=== PATIENT | female | born 1980 | race African-American/Black ===

== ENCOUNTER 2017-01-07 13:21 | Emergency (ER) | payer OTHER ==
[~2017-01-07] VITALS: Ht 157.5 cm; Wt 102.5 kg
[~2017-01-07 13:21] MED LIST: FLEXERIL; METO-239 PO
--- NOTE | 2017-01-07 13:56 | RAD ---
CHEST AP ONLY Clinical Indication: chest pain Comparison: Chest radiograph dated 04/23/2007 Findings: Normal lung volume. No focal consolidation. Normal pulmonary vasculature. No pleural effusion or pneumothorax. The cardiomediastinal silhouette and great vessels are normal. No acute osseous abnormality. IMPRESSION: No acute cardiopulmonary process.
[2017-01-07] MEDS ORDERED: ASPIRIN 81 MG TAB.CHEW PO ONE (14:00)
[2017-01-07 14:01] LABS: BASO # 0.1 x10^3/uL (0.0-0.2); BASO % 1 % (0-3); EOS % 0 % (0-3); HEMATOCRIT 37.6 % (36.0-47.0); HEMOGLOBIN 12.8 g/dL (12.0-15.5); LYMPH # 2.2 x10^3/uL (1.0-4.8); LYMPH % 22 % (24-48); MEAN CORPUSCULAR HEMOGLOBIN 30 pg (25-35); MEAN CORPUSCULAR HGB CONC 34 g/dL (31-37); MEAN CORPUSCULAR VOLUME 88 fL (79-100); MONO # 0.4 x10^3/uL (0.0-1.1); MONO % 4 % (0-9); NEUT # 7.4 x10^3uL (1.8-7.7); NEUT % 73 % (31-73); PLATELET COUNT 264 x10^3/uL (140-400); RED BLOOD COUNT 4.26 x10^6/uL (3.50-5.40); RED CELL DISTRIBUTION WIDTH 13.3 % (11.5-14.5); WHITE BLOOD COUNT 10.1 x10^3/uL (4.0-11.0)
[2017-01-07 14:16] LABS: CALCIUM 9.1 mg/dL (8.5-10.1); CREATININE 0.9 mg/dL (0.6-1.0); DIRECT BILIRUBIN 0.1 mg/dL (0.0-0.2); GFR 86.7; POTASSIUM 3.7 mmol/L (3.5-5.1); TOTAL BILIRUBIN 0.4 mg/dL (0.2-1.0); TOTAL PROTEIN 8.2 g/dL (6.4-8.2)
--- NOTE | 2017-01-07 14:27 | PHYS DOC ---
Past History Past Medical History: Other Past Surgical History: Other Alcohol Use: None Drug Use: None Adult General Chief Complaint Chief Complaint: CHEST PAIN HPI HPI 36-year-old female presenting to the emergency department today with chest pain. She describes as a sharp shooting pain that is intermittent nonradiating and without alleviating factors. It is moderate in severity. She denies unilateral leg swelling hemoptysis personal history of DVTs. She denies recent immobilization. She denies having diabetes high blood pressure high cholesterol. She reports a history of smoking. Her pain is been present for more than 4 days. Review of systems is negative for abdominal pain shortness of breath fevers chills nausea or vomiting. She denies diaphoresis. All other review of systems is negative unless otherwise noted in history of present illness. ED course: 36-year-old female presenting to the emergency department today with chest pain. PERC neg. triage vital signs show the patient to have a normal heart rate. Saturations within normal limits. Lungs are clear to auscultation abdomen is soft and nontender. EKG reviewed by myself today shows sinus rhythm with a regular rate. ST segments are congruent. Not suggestive of ACS. Chest x- ray ordered which was unremarkable. Chest x-ray reviewed by myself shows no obvious abnormalities. Blood work obtained which was unremarkable. The patient was subsequently discharged home. The patient was then discharged home in stable condition to follow up with their primary care physician over the next 2- 3 days. They were to return if their symptoms worsened or if they were concerned for any reason. [id number]-[id number] discharge instructions and return precautions were given. Patient's questions were answered to their satisfaction. Patient is comfortable plan. Review of Systems Review of Systems SEE ABOVE Current Medications Current Medications Current Medications Medications (Trade) Dose Ordered Sig/[facility] Start Time Stop Time Status Last Admin Dose Admin Aspirin (Children'S Aspirin) 324 mg 1X ONCE 01/07/17 14:00 01/07/17 14:01 DC 01/07/17 13:44 324 MG Allergies Allergies Allergies Coded Allergies Type Severity Reaction Last Updated Verified No Known Drug Allergies 01/07/17 No Physical Exam Physical Exam Constitutional: Well developed, well nourished, no acute distress, non-toxic appearance. [] HENT: Normocephalic, atraumatic, bilateral external ears normal, oropharynx moist, no oral exudates, nose normal. [] Eyes: PERRLA, EOMI, conjunctiva normal, no discharge. [] Neck: Normal range of motion, no tenderness, supple, no stridor. [] Cardiovascular:Heart rate regular rhythm, no murmur [] Lungs & Thorax: Bilateral breath sounds clear to auscultation [] Abdomen: Bowel sounds normal, soft, no tenderness, no masses, no pulsatile masses. [] Skin: Warm, dry, no erythema, no rash. [] Back: No tenderness, no CVA tenderness. [] Extremities: No tenderness, no cyanosis, no clubbing, ROM intact, no edema. [] Neurologic: Mental status: Awake oriented and alert x3 Cranial nerves: Extraocular movements intact, eyebrows baldomero bilaterally smile symmetric, uvula elevation, shoulder shrug intact, tongue protrusion normal DTRs: 2+ Sensation: equal and normal in all extremities Strength: 5/5 in upper and lower extremities bilaterally Psychologic: Affect normal, judgement normal, mood normal. [] Current Patient Data Vital Signs Vital Signs Date Time Temp Pulse Resp B/P (MAP) Pulse Ox O2 Delivery O2 Flow Rate FiO2 01/07/17 13:37 98.4 87 16 100 Room Air Lab Results Laboratory Tests Test 01/07/17 13:47 White Blood Count 10.1 x10^3/uL (4.0-11.0) Red Blood Count 4.26 x10^6/uL (3.50-5.40) Hemoglobin 12.8 g/dL (12.0-15.5) Hematocrit 37.6 % (36.0-47.0) Mean Corpuscular Volume 88 fL (79-100) Mean Corpuscular Hemoglobin 30 pg (25-35) Mean Corpuscular Hemoglobin Concent 34 g/dL (31-37) Red Cell Distribution Width 13.3 % (11.5-14.5) Platelet Count 264 x10^3/uL (140-400) Neutrophils (%) (Auto) 73 % (31-73) Lymphocytes (%) (Auto) 22 % (24-48) L Monocytes (%) (Auto) 4 % (0-9) Eosinophils (%) (Auto) 0 % (0-3) Basophils (%) (Auto) 1 % (0-3) Neutrophils # (Auto) 7.4 x10^3uL (1.8-7.7) Lymphocytes # (Auto) 2.2 x10^3/uL (1.0-4.8) Monocytes # (Auto) 0.4 x10^3/uL (0.0-1.1) Eosinophils # (Auto) 0.0 x10^3/uL (0.0-0.7) Basophils # (Auto) 0.1 x10^3/uL (0.0-0.2) Sodium Level 139 mmol/L (136-145) Potassium Level 3.7 mmol/L (3.5-5.1) Chloride Level 104 mmol/L (98-107) Carbon Dioxide Level 28 mmol/L (21-32) Anion Gap 7 (6-14) Blood Urea Nitrogen 7 mg/dL (7-20) Creatinine 0.9 mg/dL (0.6-1.0) Estimated GFR (Cockcroft-Gault) 86.7 Glucose Level 98 mg/dL (70-99) Calcium Level 9.1 mg/dL (8.5-10.1) Total Bilirubin 0.4 mg/dL (0.2-1.0) Direct Bilirubin 0.1 mg/dL (0.0-0.2) Aspartate Amino Transferase (AST) 16 U/L (15-37) Alanine Aminotransferase (ALT) 16 U/L (14-59) Alkaline Phosphatase 63 U/L (46-116) Troponin I Quantitative < 0.017 ng/mL (0-0.055) Total Protein 8.2 g/dL (6.4-8.2) Albumin 4.0 g/dL (3.4-5.0) Lipase 90 U/L (73-393) EKG EKG [] Radiology/Procedures Radiology/Procedures [] Course & Med Decision Making Course & Med Decision Making Pertinent Labs and Imaging studies reviewed. (See chart for details) [] Dragon Disclaimer Dragon Disclaimer This chart was dictated in whole or in part using Voice Recognition software in a busy, high-work load, and often noisy Emergency Department environment. It may contain unintended and wholly unrecognized errors or omissions. Departure Departure: Impression: Primary Impression: Chest pain Additional Impression: Headache Disposition: 01 HOME, SELF-CARE Condition: STABLE Referrals: ELLE ROSADO PA-C (PCP) Patient Instructions: Chest Pain (Nonspecific), General Headache Without Cause Additional Instructions: Thank you for allowing us to participate in your care today. Followup with your primary care physician in 3 days if your symptoms do not improve. Call your Primary Doctor tomorrow and inform them of your visit today. If you do not have a primary care provider you can ask for a list of our primary care providers. Return to the emergency department you have any new or concerning findings. This should be evaluated by the primary care physician and any necessary consulting services for continued management within a few days after discharge. Return to emergency room if you have any new or concerning symptoms including but not limited to fever, chills, nausea, vomiting, intractable pain, any new rashes, chest pain, shortness of air, uncontrolled bleeding, difficulty breathing, and/or vision loss. Problem Qualifiers LORNA CAMILO MD Jan 07, 2017 14:27
--- NOTE | 2017-01-07 14:36 | EKG ---
[address] [address] Test Date: 2017-01-07 Test Time: 13:28:45 Pat Name: SERGIO DIXON Department: Room: Gender: F Rn Radiology: LIGIA : 1980 Requested By: LORNA CAMILO Order Number: [id number] Reading MD: Measurements Intervals [place] Rate: 90 P: 59 ID: [id number] QRS: 26 QRSD: 84 T: 39 QT: 304 QTc: 375 Interpretive Statements SINUS RHYTHM QRS(T) CONTOUR ABNORMALITY CONSIDER ANTEROSEPTAL MYOCARDIAL DAMAGE POSSIBLY ABNORMAL ECG RI6.01 No previous ECG available for comparison
[2017-01-07 14:40] VITALS: BP 140/88
== END 2017-01-07 14:47 | disposition home or self-care (01) ==
LOC: ER 13:21
DX: R07.9 Chest pain, unspecified (principal); R51 Headache
CPT/HCPCS: 36415; 71010; 80048; 80076; 83690; 84443; 84484; 85025; 93005; 99285-25

== ENCOUNTER 2021-07-31 21:35 | Emergency (ER) | payer MEDICAID, OTHER ==
[~2021-07-31] VITALS: Ht 161.3 cm; Wt 100.0 kg
[2021-07-31] MEDS ORDERED: ONDANSETRON PF 4 MG/2 ML VIAL. IVP ONE ×2 (22:00→23:00)
[2021-07-31] MEDS ORDERED: IV NORMAL SALINE 1,000ML 1,000 ML IV ONE (22:00)
[2021-07-31 22:26] LABS: BASO # 0.1 x10^3/uL (0.0-0.2); BASO % 1 % (0-3); EOS # 0.2 x10^3/uL (0.0-0.7); EOS % 2 % (0-3); HEMATOCRIT 37.8 % (36.0-47.0); HEMOGLOBIN 12.6 g/dL (12.0-15.5); LYMPH # 2.7 x10^3/uL (1.0-4.8); LYMPH % 26 % (24-48); MEAN CORPUSCULAR HEMOGLOBIN 31 pg (25-35); MEAN CORPUSCULAR HGB CONC 33 g/dL (31-37); MEAN CORPUSCULAR VOLUME 92 fL (79-100); MONO # 0.4 x10^3/uL (0.0-1.1); MONO % 4 % (0-9); NEUT # 7.1 x10^3uL (1.8-7.7); NEUT % 68 % (31-73); PLATELET COUNT 259 x10^3/uL (140-400); RED BLOOD COUNT 4.11 x10^6/uL (3.50-5.40); RED CELL DISTRIBUTION WIDTH 14.5 % (11.5-14.5); WHITE BLOOD COUNT 10.5 x10^3/uL (4.0-11.0)
--- NOTE | 2021-07-31 22:29 | PHYS DOC ---
Past History Past Medical History: Other Additional Past Medical Histor: GRAVES DISEASE Past Surgical History: Other Additional Past Surgical Histo: THYROIDECTOMY Alcohol Use: Occasionally Drug Use: None General Adult EDM: Chief Complaint: NAUSEA/VOMITING/DIARRHEA HPI: HPI: Patient is a 41-year-old female coming in for nausea, vomiting, and abdominal pain. Patient states she is been having symptoms for 2 days and has not been able to hold anything down. Patient states that she has a sister had similar symptoms a couple days before. Patient tried to drink Gatorade. Review of Systems: Review of Systems: All other systems within normal limits except for as noted in the HPI Current Medications: Current Meds: Current Medications Medications (Trade) Dose Ordered Sig/Aro[facility]o Start Time Stop Time Status Last Admin Dose Admin Ondansetron HCl (Zofran) 4 mg 1X ONCE 07/31/21 22:00 07/31/21 22:01 DC Sodium Chloride 1,000 ml @ 1,000 mls/hr 1X ONCE 07/31/21 22:00 07/31/21 22:59 Allergies: Allergies: Allergies Coded Allergies Type Severity Reaction Last Updated Verified No Known Drug Allergies 07/31/21 No Physical Exam: PE: Constitutional: Well developed, well nourished, no acute distress, non-toxic appearance. [] HENT: Normocephalic, atraumatic, bilateral external ears normal, nose normal. [] Eyes: PERRLA, conjunctiva normal, no discharge. [] Neck: No rigidity, supple, no stridor. [] Cardiovascular: Regular rate and rhythm, brisk cap refill [] Lungs & Thorax: Non labored symmetric respirations, no tachypnea or respiratory distress [] Abdomen: Soft, nondistended. Skin: Warm, dry, no erythema, no rash. [] Back: Unremarkable Extremities: No deformities, range of motion grossly intact, no lower extremity edema [] Neurologic: Alert and oriented X 3, no focal deficits noted. [] Psychologic: Affect normal, judgement normal, mood normal. [] Current Patient Data: Vital Signs: Vital Signs Date Time Temp Pulse Resp B/P (MAP) Pulse Ox O2 Delivery O2 Flow Rate FiO2 07/31/21 21:55 98.7 103 18 156/88 (110) 97 EKG: EKG: [] Radiology/Procedures: Radiology/Procedures: [] Heart Score: C/O Chest Pain: No Risk Factors: Risk Factors: DM, Current or recent (<one month) smoker, HTN, HLP, family history of CAD, obesity. Risk Scores: Score 0 - 3: 2.5% MACE over next 6 weeks - Discharge Home Score 4 - 6: 20.3% MACE over next 6 weeks - Admit for Clinical Observation Score 7 - 10: 72.7% MACE over next 6 weeks - Early Invasive Strategies Dragon Disclaimer: Dragon Disclaimer: This electronic medical record was generated, in whole or in part, using a voice recognition dictation system. Departure Departure: Impression: Primary Impression: Nausea, vomiting, and diarrhea Additional Impressions: Infection due to trichomonas UTI (urinary tract infection) Disposition: HOME / SELF CARE / HOMELESS Condition: STABLE Referrals: ASHISH JUAREZ (PCP) Patient Instructions: Diet for Diarrhea, Adult Scripts Metronidazole (METRONIDAZOLE) 500 Mg Tablet 1 TAB PO BID for antibiotic for 7 Days, #14 TAB 0 Refills Prov: ZACK MARCOS MD 07/31/21 Cephalexin (CEPHALEXIN) 500 Mg Tablet 1 TAB PO BID for antibiotic for 7 Days, #14 TAB Prov: ZACK MARCOS MD 07/31/21 Ondansetron (ONDANSETRON ODT) 8 Mg Tab.rapdis 8 MG PO PRN Q6-8HRS PRN for VOMITING, #10 TAB Prov: ZACK MARCOS MD 07/31/21 ZACK MARCOS MD Jul 31, 2021 22:28
[2021-07-31 22:34] LABS: CREATININE 0.9 mg/dL (0.6-1.0); GFR 84.3; POTASSIUM 3.8 mmol/L (3.5-5.1)
[2021-07-31 22:35] LABS: BACTERIA,URINE MOD /HPF (0-FEW); CLARITY,URINE CLEAR; COLOR,URINE YELLOW; GLUCOSE,URINE NEG (NEG); NITRITE,URINE NEG (NEG); RBC,URINE OCC /HPF (0-2); SQUAMOUS EPITHELIAL CELL,UR FEW /LPF; TRICHOMONAS,URINE PRESENT; UROBILINOGEN,URINE 0.2 mg/dL (0.2 mg/dL); WBC,URINE >40 /HPF (0-4)
[2021-07-31 22:39] LABS: ALBUMIN 3.8 g/dL (3.4-5.0); ALBUMIN/GLOBULIN RATIO 1.2 (1.0-1.7); TOTAL BILIRUBIN 0.2 mg/dL (0.2-1.0); TOTAL PROTEIN 7.1 g/dL (6.4-8.2)
[2021-07-31] MEDS ORDERED: IV NORMAL SALINE 50ML 50 ML ONE (22:48)
[2021-07-31] MEDS ORDERED: cefTRIAXone SODIUM 1 GM VIAL ONE (22:48)
[2021-07-31] MEDS ORDERED: ONDA8TAB15 PO (23:12)
[2021-07-31] MEDS ORDERED: METR-34 PO (23:12)
[2021-07-31] MEDS ORDERED: CEPH500T PO (23:12)
[2021-07-31 23:21] VITALS: BP 135/66
== END 2021-07-31 23:27 | disposition home or self-care (01) ==
LOC: ER 21:35
DX: N39.0 Urinary tract infection, site not specified (principal); A59.9 Trichomoniasis, unspecified; R11.2 Nausea with vomiting, unspecified; R19.7 Diarrhea, unspecified
CPT/HCPCS: 36415; 80053; 81001; 81025; 83690; 85025; 87086; 96361; 96365; 96375; 96376; 99284; J0696; J2405; J7030

== ENCOUNTER 2021-08-20 12:28 | Emergency (ER) | payer MEDICAID ==
[~2021-08-20] VITALS: Ht 162.6 cm; Wt 97.3 kg
[~2021-08-20 12:28] MED LIST changes: +CEPH500T PO; +METR-34 PO; +ONDA8TAB15 PO
[2021-08-20] MEDS ORDERED: KETOROLAC 30 MG/ML VIAL. IVP ONE (13:15)
[2021-08-20] MEDS ORDERED: IV NORMAL SALINE 1,000ML 1,000 ML IV SCH (13:15)
--- NOTE | 2021-08-20 13:17 | PHYS DOC ---
Past History Past Medical History: Other Additional Past Medical Histor: GRAVES DISEASE; HEART MURMUR Past Surgical History: Other Additional Past Surgical Histo: PARTIAL THYROIDECTOMY DUE TO CANCER Alcohol Use: Occasionally Drug Use: None General Adult EDM: Chief Complaint: MULTIPLE COMPLAINTS HPI: HPI: Patient is a 41-year-old female who presents to the emergency department for multiple complaints. Patient reports that starting on Thursday of last week she started to "feel bad". She reports at that time she started experiencing sinus congestion and a "scratchy throat" she states that she was taking mesj-uax-nsqxaaw sinus medication without relief. She is was also complaining of an intermittent productive cough. She reports that she started having lightheadedness worse with position changes and head movements with intermittent sharp stabbing left-sided chest pain and shortness of breath that started on Thursday. She reports that occasionally when she does feel the sharp stabbing pains in her chest she does experience numbness and tingling in her fingers. She reports that currently she is not having the sharp stabbing chest pain but reports a generalized heaviness feeling. She has a history of asthma and hypothyroidism. She denies any fevers, nausea or vomiting. Review of Systems: Review of Systems: Constitutional: see HPI HENT: see HPI Respiratory: see HPI Cardiovascular: see HPI GI: see HPI Current Medications: Current Meds: Current Medications Medications (Trade) Dose Ordered Sig/[facility]ro[facility] Start Time Stop Time Status Last Admin Dose Admin Ketorolac Tromethamine (Toradol 30mg Vial) 30 mg 1X ONCE 08/20/21 13:15 08/20/21 13:16 UNV Sodium Chloride 1,000 ml @ 1,000 mls/hr Q1H 08/20/21 13:15 08/20/21 14:14 UNV Allergies: Allergies: Allergies Coded Allergies Type Severity Reaction Last Updated Verified No Known Drug Allergies 08/20/21 No Physical Exam: PE: Constitutional: Well developed, well nourished, no acute distress, non-toxic appearance. [] HENT: Normocephalic, atraumatic, bilateral external ears normal, oropharynx moist, no oral exudates, maxillary, frontal and ethmoid sinus tenderness with palpation nose normal. [] Eyes: PERRL, EOMI, conjunctiva normal, no discharge. [] Neck: Normal range of motion, no tenderness, supple, no stridor. [] Cardiovascular:Heart rate regular rhythm, no murmur [] Lungs & Thorax: Bilateral breath sounds clear to auscultation [] Abdomen: Bowel sounds normal, soft, no tenderness, no masses, no pulsatile masses. [] Skin: Warm, dry, no erythema, no rash. [] Back: No tenderness, normal ROM Extremities: No tenderness, no cyanosis, no clubbing, ROM intact, no edema. [] Neurologic: Alert and oriented X 3, normal motor function, normal sensory function, no focal deficits noted, patient moving all 4 extremities equally, plantar, Ataxia, no slurred speech. [] Psychologic: Affect normal, judgement normal, mood normal. [] Current Patient Data: Labs: Laboratory Tests Test 08/20/21 12:53 08/20/21 13:35 Bedside Urine HCG, Qualitative hcg negative White Blood Count 8.9 x10^3/uL Red Blood Count 4.05 x10^6/uL Hemoglobin 12.4 g/dL Hematocrit 37.1 % Mean Corpuscular Volume 92 fL Mean Corpuscular Hemoglobin 31 pg Mean Corpuscular Hemoglobin Concent 33 g/dL Red Cell Distribution Width 14.1 % Platelet Count 256 x10^3/uL Neutrophils (%) (Auto) 69 % Lymphocytes (%) (Auto) 25 % Monocytes (%) (Auto) 4 % Eosinophils (%) (Auto) 1 % Basophils (%) (Auto) 1 % Neutrophils # (Auto) 6.2 x10^3uL Lymphocytes # (Auto) 2.2 x10^3/uL Monocytes # (Auto) 0.4 x10^3/uL Eosinophils # (Auto) 0.1 x10^3/uL Basophils # (Auto) 0.1 x10^3/uL D-Dimer (Magui) 0.36 mg/L Sodium Level 137 mmol/L Potassium Level 3.8 mmol/L Chloride Level 102 mmol/L Carbon Dioxide Level 25 mmol/L Anion Gap 10 Blood Urea Nitrogen 14 mg/dL Creatinine 0.9 mg/dL Estimated GFR (Cockcroft-Gault) 84.3 BUN/Creatinine Ratio 16 Glucose Level 85 mg/dL Calcium Level 9.1 mg/dL Total Bilirubin 0.2 mg/dL Aspartate Amino Transf (AST/SGOT) 21 U/L Alanine Aminotransferase (ALT/SGPT) 22 U/L Alkaline Phosphatase 60 U/L Troponin I High Sensitivity 6 ng/L Total Protein 7.1 g/dL Albumin 3.7 g/dL Albumin/Globulin Ratio 1.1 Current Medications Medications (Trade) Dose Ordered Sig/Aroldo Route PRN Reason Start Time Stop Time Status Last Admin Dose Admin Sodium Chloride 1,000 ml @ 1,000 mls/hr Q1H IV 08/20/21 13:15 08/20/21 14:14 DC 08/20/21 13:15 Ketorolac Tromethamine (Toradol 30mg Vial) 30 mg 1X ONCE IVP 08/20/21 13:15 08/20/21 13:22 DC 08/20/21 13:15 Vital Signs: Vital Signs Date Time Temp Pulse Resp B/P (MAP) Pulse Ox O2 Delivery O2 Flow Rate FiO2 08/20/21 12:30 95.7 105 18 147/91 (109) 100 Room Air EKG: EKG: [] EKG performed by ER staff at 1338 shows sinus rhythm with a rate of 77 no STEMI read by Dr. De Radiology/Procedures: Radiology/Procedures: []PROCEDURE: CHEST PA & LATERAL INDICATION: Reason: chest pain, soa / Spl. Instructions: / History: COMPARISON: September 2019 FINDINGS: 2 view of chest obtained. No focal airspace consolidation. Cardiomediastinal contour unremarkable. No acute osseous abnormality. IMPRESSION: * No focal airspace consolidation or edema. Electronically signed by: Casey Camarillo MD (08/20/2021 2:27 PM) [id number] DICTATED AND SIGNED BY: CASEY CAMARILLO MD DATE: 08/20/21 1424 CC: TAYLOR FLOWER PAINTER FOREMAN; CAMRYN TEJADA PA ~ Heart Score: C/O Chest Pain: Yes HEART Score for Chest Pain: HEART Score for Chest Pain Response (Comments) Value History Slighlty/Non-Suspicious 0 Age < 45 0 Risk Factors No Risk Factors 0 Troponin < Normal Limit 0 Total 0 Risk Factors: Risk Factors: DM, Current or recent (<one month) smoker, HTN, HLP, family history of CAD, obesity. Risk Scores: Score 0 - 3: 2.5% MACE over next 6 weeks - Discharge Home Score 4 - 6: 20.3% MACE over next 6 weeks - Admit for Clinical Observation Score 7 - 10: 72.7% MACE over next 6 weeks - Early Invasive Strategies Course & Med Decision Making: Course & Med Decision Making Pertinent Labs and Imaging studies reviewed. (See chart for details) [] Patient presents to the emergency department for multiple complaints including sinus congestion and sinus pain, lightheadedness worse with position changes, chest pain, shortness of breath and a cough. Work-up in the ER consisted of blood work including troponin, urinalysis, chest x-ray rule out pneumonia, influenza testing COVID testing. Patient was treated with IV fluids and pain education. Patient's blood work is unremarkable, negative troponin, negative D-dimer. Chest x-ray did not show any acute findings. Patient's influenza and COVID testing was negative. Patient's chest pain did start 2 days ago so no need for delta troponins. Upon reevaluation, patient reports that her lightheadedness has resolved she is no longer experiencing chest pain. Patient's was very tender with palpation of ethmoid and maxillary sinuses therefore she will be treated for sinusitis. Patient's vital signs are stable, tachycardia has improved. Was given cardiology follow-up information. I discussed with patient all findings and diagnostic testing as well as the need to follow-up with PCP for further evaluation and treatment or return to the ER if any new or worsening symptoms. Strict return precautions were also discussed at length. Patient voiced understanding and agreement with the plan. Patient is hemodynamically stable at the time of disposition. Dragon Disclaimer: Dragon Disclaimer: This electronic medical record was generated, in whole or in part, using a voice recognition dictation system. Departure Departure: Impression: Primary Impression: Light-headed feeling Additional Impression: Sinusitis Qualified Codes: J01.10 - Acute frontal sinusitis, unspecified Disposition: HOME / SELF CARE / HOMELESS Condition: GOOD Referrals: ASHISH JUAREZ (PCP) DI AGUILA MD Patient Instructions: Chest Pain (Nonspecific), Sinusitis Additional Instructions: You are seen in the emergency department today for lightheadedness, cough, sinus pain, chest pain. Your blood work and chest x-ray did not show any acute findings. At this time, does not appear that you are experiencing acute coronary syndrome. You likely are experiencing sinusitis which will be treated with an antibiotic. Start and finish it completely. You can take Flonase over the counter. Take Tylenol and ibuprofen at home for pain. Increase your fluids and rest as dehydration is a common cause of lightheadedness. Slowly change positions at home to avoid passing out. Follow-up with your primary care provider tomorrow regarding your ER visit. If you start to have chest pain again you need to return to the emergency department for reevaluation. You may need to follow-up with a poultry hanger and was attached to this discharge paperwork. Return to the emergency department if you develop chest pain, shortness of breath, lightheadedness, syncope, high fevers refractory to treatment, intractable nausea or vomiting. Scripts Amoxicillin/Potassium Clav (AUGMENTIN 875-125 TABLET) 1 Each Tablet 1 TAB PO BID for sinusitis for 10 Days, #20 TAB 0 Refills Prov: TAYLOR FLOWER APRN 08/20/21 TAYLOR FLOWER APRN August 20, 2021 13:17
[2021-08-20 13:58] LABS: BASO # 0.1 x10^3/uL (0.0-0.2); BASO % 1 % (0-3); EOS # 0.1 x10^3/uL (0.0-0.7); EOS % 1 % (0-3); HEMATOCRIT 37.1 % (36.0-47.0); HEMOGLOBIN 12.4 g/dL (12.0-15.5); LYMPH # 2.2 x10^3/uL (1.0-4.8); LYMPH % 25 % (24-48); MEAN CORPUSCULAR HEMOGLOBIN 31 pg (25-35); MEAN CORPUSCULAR HGB CONC 33 g/dL (31-37); MEAN CORPUSCULAR VOLUME 92 fL (79-100); MONO # 0.4 x10^3/uL (0.0-1.1); MONO % 4 % (0-9); NEUT # 6.2 x10^3uL (1.8-7.7); NEUT % 69 % (31-73); PLATELET COUNT 256 x10^3/uL (140-400); RED BLOOD COUNT 4.05 x10^6/uL (3.50-5.40); RED CELL DISTRIBUTION WIDTH 14.1 % (11.5-14.5); WHITE BLOOD COUNT 8.9 x10^3/uL (4.0-11.0)
--- NOTE | 2021-08-20 14:09 | RAD ---
INDICATION: Reason: chest pain / Spl. Instructions: / History: COMPARISON: January 2017 FINDINGS: Frontal view of chest obtained. Cardiomediastinal silhouette is prominent in size but likely exaggerated by portable technique. No definite focal airspace consolidation or edema. IMPRESSION: * No focal airspace consolidation or edema. Electronically signed by: Miguel Vargas MD (08/20/2021 2:07 PM) [id number]
[2021-08-20 14:11] LABS: CALCIUM 9.1 mg/dL (8.5-10.1); CREATININE 0.9 mg/dL (0.6-1.0); GFR 84.3; POTASSIUM 3.8 mmol/L (3.5-5.1)
[2021-08-20 14:17] LABS: ALBUMIN 3.7 g/dL (3.4-5.0); ALBUMIN/GLOBULIN RATIO 1.1 (1.0-1.7); TOTAL BILIRUBIN 0.2 mg/dL (0.2-1.0); TOTAL PROTEIN 7.1 g/dL (6.4-8.2)
[2021-08-20] MEDS ORDERED: AMOX1TAB61 PO (15:00)
[2021-08-20 15:20] VITALS: BP 153/91
[2021-08-20 15:29] LABS: INFLUENZA A PATIENT NEGATIVE (NEGATIVE); INFLUENZA B PATIENT NEGATIVE (NEGATIVE)
== END 2021-08-20 15:20 | disposition home or self-care (01) ==
LOC: ER 12:28
DX: J01.10 Acute frontal sinusitis, unspecified (principal); R42 Dizziness and giddiness; Z20.822 Contact with and (suspected) exposure to COVID-19
CPT/HCPCS: 36415; 71045; 80053; 81025; 84484; 85025; 85379; 87428; 93005; 96361; 96374; 99285; J1885; J7030